=== PATIENT | male | born 1980 | race Caucasian/White ===

== ENCOUNTER 2018-02-06 03:11 | Inpatient (IN) ==
--- NOTE | 2018-02-06 03:46 | ED ---
HPI General Chief complaint: Recheck/Abnormal Lab/Rx Stated complaint: medical complaint Time Seen by Provider: 02/06/18 03:45 Source: patient Mode of arrival: ambulatory Limitations: no limitations History of Present Illness HPI narrative: 37-year-old male came to the emergency room with history of chills, shaking and bilateral lower extremity cramps. This temperature upon arrival was 103 oral. Patient says he has been riding his motorcycle for past 2 days and has not drank much fluids. It has been hot and he feels that he could be dehydrated. He started feeling like this 12 hours ago. No nausea vomiting. No history of cough. Patient says that he had a stroke couple years ago and it feels exactly the same way. He is concerned that he may be having another heatstroke. He has been slightly lightheaded but no syncopal episode. No history of chest pain. No known sick contacts. Patient says that otherwise he is healthy. He is not on any medications. Patient was slightly tachycardic upon arrival. He is awake and answering questions appropriately. Leg cramps are worse upon moving his legs. Onset (ago): hour(s) Location: lower extremity Radiation: non-radiation Severity scale (1-10): 6 Quality: aching Related Data Home Medications Medication Instructions Recorded Confirmed dexlansoprazole 60 mg PO PRN 02/06/18 02/06/18 Allergies Allergy/AdvReac Type Severity Reaction Status Date / Time No Known Allergies Allergy Verified 02/06/18 03:42 Review of Systems ROS: all other systems reviewed are negative Constitutional Reports chills Musculoskeletal Reports myalgias PMFSH Medical History Medical History Heartburn (Acute) Nephrolithiasis (Acute) Surgical History Surgical History No history of previous surgery (Acute) Family History Family History Grandparent Diabetes Heart disease Social History Social History Substance History: No History of Abuse Second Hand Smoke Exposure: Yes Smoking Status: Light tobacco smoker Tobacco Type: Cigarettes Packs Per Day: 1 Cigarettes Per Day: 20.0 How Often Do You Have a Drink Containing Alcohol: 2 to 4 times a month Recent Travel in [facility] within the Last 8 Weeks: No Recent Out of Country Travel within the Last 8 Weeks: No Immunization History Tetanus Immunization: Unsure Exam Narrative Exam Narrative: GENERAL: Awake, alert, moderate distress SKIN: Focused skin assessment warm/dry. HEAD: Atraumatic. Normocephalic. EYES: Pupils equal and round. No scleral icterus. No injection or drainage. ENT: No nasal bleeding or discharge. Dry mucous membrane. NECK: Trachea midline. No JVD. CARDIOVASCULAR: Regular rate and rhythm. No murmur appreciated. RESPIRATORY: No accessory muscle use. Clear to auscultation. Breath sounds equal bilaterally. GASTROINTESTINAL: Abdomen soft, non-tender, nondistended. Hepatic and splenic margins not palpable. MUSCULOSKELETAL: No obvious deformities. No clubbing. No cyanosis. No edema. NEUROLOGICAL: Awake and alert. No obvious cranial nerve deficits. Motor grossly within normal limits. Normal speech. PSYCHIATRIC: Appropriate mood and affect; insight and judgment normal. Course Initial Documented Vital Signs Temperature 103.0 F H 02/06/18 03:38 Pulse Rate 108 H 02/06/18 03:38 Respiratory Rate 18 02/06/18 03:38 Blood Pressure 139/84 02/06/18 03:38 Pulse Oximetry 96 02/06/18 03:38 Last Documented Vital Signs Temperature 98.6 F 02/08/18 04:00 Pulse Rate 61 02/08/18 05:00 Respiratory Rate 19 02/08/18 04:00 Blood Pressure 123/76 02/08/18 04:00 Pulse Oximetry 96 02/08/18 04:00 Medical Decision Making MDM Narrative Medical decision making narrative: 4:57 AM CBC shows some leukocytosis. Lactic acid is within normal limits. Patient is getting IV fluid bolus at's per sepsis protocol. He was given Tylenol p.o. Awaiting for chemistry and CPK. 5:17 AM UA is back which is grossly positive for UTI. Repeat temperature is 100.8. I just went and spoke with the patient and he says he feels a little better. CPKs within normal limit. I would like to admit the patient for IV antibiotics. Patient was given 1 dose of Rocephin. This was discussed with the patient along with the plan and he understands. He is agreeable to the plan. Awaiting for the hospitalist callback. Medical Screen Exam Complete: Yes Emergency Medical Condition: Yes Lab Data Result diagrams: 02/07/18 10:48 02/07/18 10:48 Lab Results 02/06/18 02/06/18 02/06/18 Range/Units 04:00 04:00 04:00 WBC 14.6 H (4.0-11.0) th/mm3 RBC 4.57 (4.50-5.90) mil/mm3 Hgb 14.0 (13.0-17.0) gm/dL Hct 40.0 (39.0-51.0) % MCV 87.6 (80.0-100.0) fL MCH 30.6 (27.0-34.0) pg MCHC 34.9 (32.0-36.0) % RDW 13.5 (11.6-17.2) % Plt Count 255 (150-450) th/mm3 MPV 7.9 (7.0-11.0) fL Neut % (Auto) 77.5 H (16.0-70.0) % Lymph % (Auto) 10.8 (9.0-44.0) % [place] % (Auto) 10.9 H (0.0-8.0) % Eos % (Auto) 0.4 (0.0-4.0) % Baso % (Auto) 0.4 (0.0-2.0) % Neut # (Auto) 11.3 H (1.8-7.7) th/mm3 Lymph # (Auto) 1.6 (1.0-4.8) th/mm3 [place] # (Auto) 1.6 H (0.0-0.9) th/mm3 Eos # (Auto) 0.1 (0.0-0.4) th/mm3 Baso # (Auto) 0.1 (0.0-0.2) th/mm3 WBC Differential . Differential Comment Auto diff final PT 11.4 (9.8-11.6) sec INR 1.1 Ratio APTT 31.5 H (24.3-30.1) sec Sodium (136-145) meq/L Potassium (3.5-5.1) meq/L Chloride (98-107) meq/L Carbon Dioxide (21.0-32.0) meq/L Anion Gap (5-15) meq/L BUN (7-18) mg/dL Creatinine (0.60-1.30) mg/dL Estimated GFR (>89) mL/min Random Glucose (74-106) mg/dL Lactic Acid (0.4-2.0) mmol/L Calcium (8.5-10.1) mg/dL Magnesium (1.5-2.5) mg/dL Total Bilirubin (0.2-1.0) mg/dL AST (15-37) U/L ALT (12-78) U/L Alkaline Phosphatase (45-117) U/L Total Creatine Kinase Cancelled Total Protein (6.4-8.2) g/dL Albumin (3.4-5.0) g/dL Urine Color (Yellw/Straw) Urine Clarity (Clear) Urine pH (5.0-8.5) Ur Specific [place] (1.002-1.035) Urine Protein (Neg-Trace) mg/dL Urine Glucose (UA) (Negative) mg/dL Urine Ketones (Negative) mg/dL Urine Occult Blood (Negative) Urine Nitrate (Negative) Urine Bilirubin (Negative) Urine Urobilinogen (Less than 2) mg/dL Ur Leukocyte Esterase (Negative) Urine RBC (0-3) /hpf Urine WBC (0-5) /hpf Urine Bacteria (None) /hpf Urine Mucus (Occasional) /lpf Micro UA Comment Ur Microscopic Review Urine Culture Comments 02/06/18 02/06/18 02/06/18 Range/Units 04:00 04:00 04:55 WBC (4.0-11.0) th/mm3 RBC (4.50-5.90) mil/mm3 Hgb (13.0-17.0) gm/dL Hct (39.0-51.0) % MCV (80.0-100.0) fL MCH (27.0-34.0) pg MCHC (32.0-36.0) % RDW (11.6-17.2) % Plt Count (150-450) th/mm3 MPV (7.0-11.0) fL Neut % (Auto) (16.0-70.0) % Lymph % (Auto) (9.0-44.0) % [place] % (Auto) (0.0-8.0) % Eos % (Auto) (0.0-4.0) % Baso % (Auto) (0.0-2.0) % Neut # (Auto) (1.8-7.7) th/mm3 Lymph # (Auto) (1.0-4.8) th/mm3 [place] # (Auto) (0.0-0.9) th/mm3 Eos # (Auto) (0.0-0.4) th/mm3 Baso # (Auto) (0.0-0.2) th/mm3 WBC Differential Differential Comment PT (9.8-11.6) sec INR Ratio APTT (24.3-30.1) sec Sodium 140 (136-145) meq/L Potassium 3.5 (3.5-5.1) meq/L Chloride 108 H (98-107) meq/L Carbon Dioxide 26.3 (21.0-32.0) meq/L Anion Gap 6 (5-15) meq/L BUN 10 (7-18) mg/dL Creatinine 1.10 (0.60-1.30) mg/dL Estimated GFR 76 L (>89) mL/min Random Glucose 98 (74-106) mg/dL Lactic Acid 0.9 (0.4-2.0) mmol/L Calcium 8.9 (8.5-10.1) mg/dL Magnesium 1.8 (1.5-2.5) mg/dL Total Bilirubin 0.6 (0.2-1.0) mg/dL AST 17 (15-37) U/L ALT 27 (12-78) U/L Alkaline Phosphatase 102 (45-117) U/L Total Creatine Kinase 91 Total Protein 7.6 (6.4-8.2) g/dL Albumin 3.7 (3.4-5.0) g/dL Urine Color Yellow (Yellw/Straw) Urine Clarity Hazy H (Clear) Urine pH 5.0 (5.0-8.5) Ur Specific [place] 1.010 (1.002-1.035) Urine Protein Negative (Neg-Trace) mg/dL Urine Glucose (UA) Negative (Negative) mg/dL Urine Ketones Negative (Negative) mg/dL Urine Occult Blood Moderate H (Negative) Urine Nitrate Positive H (Negative) Urine Bilirubin Negative (Negative) Urine Urobilinogen Less than 2 (Less than 2) mg/dL Ur Leukocyte Esterase Large H (Negative) Urine RBC 33 H (0-3) /hpf Urine WBC 176 H (0-5) /hpf Urine Bacteria Many H (None) /hpf Urine Mucus Few H (Occasional) /lpf Micro UA Comment Culture indicated Ur Microscopic Review Not Reportable Urine Culture Comments Culture indicated 02/07/18 02/07/18 Range/Units 10:48 10:48 WBC 12.2 H (4.0-11.0) th/mm3 RBC 3.68 L (4.50-5.90) mil/mm3 Hgb 11.4 L D (13.0-17.0) gm/dL Hct 34.0 L (39.0-51.0) % MCV 92.4 D (80.0-100.0) fL MCH 31.1 (27.0-34.0) pg MCHC 33.6 (32.0-36.0) % RDW 13.3 (11.6-17.2) % Plt Count 205 (150-450) th/mm3 MPV 7.8 (7.0-11.0) fL Neut % (Auto) 73.2 H (16.0-70.0) % Lymph % (Auto) 16.2 (9.0-44.0) % [place] % (Auto) 9.8 H (0.0-8.0) % Eos % (Auto) 0.5 (0.0-4.0) % Baso % (Auto) 0.3 (0.0-2.0) % Neut # (Auto) 8.9 H (1.8-7.7) th/mm3 Lymph # (Auto) 2.0 (1.0-4.8) th/mm3 [place] # (Auto) 1.2 H (0.0-0.9) th/mm3 Eos # (Auto) 0.1 (0.0-0.4) th/mm3 Baso # (Auto) 0.0 (0.0-0.2) th/mm3 WBC Differential . Differential Comment Auto diff final PT (9.8-11.6) sec INR Ratio APTT (24.3-30.1) sec Sodium 140 (136-145) meq/L Potassium 3.3 L (3.5-5.1) meq/L Chloride 109 H (98-107) meq/L Carbon Dioxide 22.3 (21.0-32.0) meq/L Anion Gap 9 (5-15) meq/L BUN 9 (7-18) mg/dL Creatinine 0.93 (0.60-1.30) mg/dL Estimated GFR Greater than 89 (>89) mL/min Random Glucose 108 H (74-106) mg/dL Lactic Acid (0.4-2.0) mmol/L Calcium 8.8 (8.5-10.1) mg/dL Magnesium (1.5-2.5) mg/dL Total Bilirubin 0.5 (0.2-1.0) mg/dL AST 19 (15-37) U/L ALT 30 (12-78) U/L Alkaline Phosphatase 89 (45-117) U/L Total Creatine Kinase Total Protein 7.0 D (6.4-8.2) g/dL Albumin 2.9 L D (3.4-5.0) g/dL Urine Color (Yellw/Straw) Urine Clarity (Clear) Urine pH (5.0-8.5) Ur Specific [place] (1.002-1.035) Urine Protein (Neg-Trace) mg/dL Urine Glucose (UA) (Negative) mg/dL Urine Ketones (Negative) mg/dL Urine Occult Blood (Negative) Urine Nitrate (Negative) Urine Bilirubin (Negative) Urine Urobilinogen (Less than 2) mg/dL Ur Leukocyte Esterase (Negative) Urine RBC (0-3) /hpf Urine WBC (0-5) /hpf Urine Bacteria (None) /hpf Urine Mucus (Occasional) /lpf Micro UA Comment Ur Microscopic Review Urine Culture Comments Imaging Data Radiologist's impression: Abdomen/Bladder Ultrasound 02/06/18 00:00 CONCLUSION: 1. 8 x 4 x 8 mm echogenic foci in the right kidney most consistent with a small stone. 2. Mild prominence of the right central collecting system which could indicate mild hydronephrosis. Chest X-Ray 02/06/18 03:51 CONCLUSION: Minimal bibasilar densities could be atelectasis or infiltrates. Discharge Plan Discharge Disposition Patient Disposition: 30 Still Patient Physicians Team ED Provider: Rodrigo Rodriguez Primary Care Provider: Primary Care Lory Smith Attending Provider: Jhoana Espino Status ED Status: Left Department Discharge Information Discharge Date/Time: 02/06/18 06:26
[2018-02-06] MEDS ORDERED: Acetaminophen 325 MG Tablet PO ONE (03:50)
[2018-02-06 04:19] LABS: Baso # (Auto) 0.1 th/mm3 (0.0-0.2); Baso % (Auto) 0.4 % (0.0-2.0); Eos # (Auto) 0.1 th/mm3 (0.0-0.4); Eos % (Auto) 0.4 % (0.0-4.0); Lymph # (Auto) 1.6 th/mm3 (1.0-4.8); Lymph % (Auto) 10.8 % (9.0-44.0); Mean Corpuscular HGB Conc 34.9 % (32.0-36.0); Mean Corpuscular Hemoglobin 30.6 pg (27.0-34.0); Mean Corpuscular Volume 87.6 fL (80.0-100.0); Mean Platelet Volume 7.9 fL (7.0-11.0); Mono # (Auto) 1.6 th/mm3 (0.0-0.9); Mono % (Auto) 10.9 % (0.0-8.0); Neut # (Auto) 11.3 th/mm3 (1.8-7.7); Neut % (Auto) 77.5 % (16.0-70.0); Platelet Count 255 th/mm3 (150-450); Red Blood Count 4.57 mil/mm3 (4.50-5.90); Red Cell Distribution Width 13.5 % (11.6-17.2); White Blood Count 14.6 th/mm3 (4.0-11.0)
--- NOTE | 2018-02-06 04:19 | XR ---
EXAM DATE: 02/06/2018 3:51 AM EDT AGE/SEX: 37 years / Male INDICATIONS: Fever. CLINICAL DATA: This is the patient's initial encounter. Patient reports that signs and symptoms have been present for 1 day and indicates a pain score of 0/10. MEDICAL/SURGICAL HISTORY: None. None. COMPARISON: No prior exams available for comparison. FINDINGS: A single AP view of the chest demonstrates minimal bibasilar densities. Heart normal in size The card iomediastinal contours are unremarkable. Osseous structures are intact. CONCLUSION: Minimal bibasilar densities could be atelectasis or infiltrates. Electronically signed by: Everardo Romero MD 02/06/2018 4:17 AM EDT
[2018-02-06 04:31] LABS: Activated Partial Thrombo Time 31.5 sec (24.3-30.1); INR 1.1 Ratio; Prothrombin Time 11.4 sec (9.8-11.6)
[2018-02-06 04:56] LABS: Alanine Aminotransferase 27 U/L (12-78); Albumin 3.7 g/dL (3.4-5.0); Anion Gap 6 meq/L (5-15); Aspartate Aminotransferase 17 U/L (15-37); Blood Urea Nitrogen 10 mg/dL (7-18); Calcium 8.9 mg/dL (8.5-10.1); Carbon Dioxide 26.3 meq/L (21.0-32.0); Chloride 108 meq/L (98-107); Glomerular Filtration Rate 76 mL/min (>89); Glucose,Random 98 mg/dL (74-106); Magnesium 1.8 mg/dL (1.5-2.5); Potassium 3.5 meq/L (3.5-5.1); Sodium 140 meq/L (136-145)
[2018-02-06 04:59] LABS: Alkaline Phosphatase 102 U/L (45-117); Total Protein 7.6 g/dL (6.4-8.2)
[2018-02-06 05:07] LABS: Bacteria,Urine Many /hpf; Bilirubin,Urine Negative (Negative); Clarity,Urine Hazy (Clear); Color,Urine Yellow (Yellw/Straw); Glucose,Urine (UA) Negative (Negative); Leukocyte Esterase,Urine Large (Negative); Mucus,Urine Few /lpf (Occasional); Nitrite,Urine Positive (Negative)
[2018-02-06 05:07] LABS: Creatine Kinase 91 U/L (39-308)
[2018-02-06] MEDS ORDERED: Bisacodyl 10 MG Supp RECTAL PRN (05:27)
[2018-02-06] MEDS: Sod Chloride 0.9% Inj 1,000 ML IV.CONT SCH ×2 (06:47→17:16)
[2018-02-06] MEDS: Senna/Docusate Sodium 8.6/50 MG Tablet PO SCH ×2 (08:57→22:19)
[2018-02-06] MEDS: Acetaminophen 325 MG Tablet PO PRN ×2 (09:02→23:03)
--- NOTE | 2018-02-06 10:01 | P.HP ---
History of Present Illness Primary Care Physician: No Primary Care Physician Chief Complaint: Fever/chills History of Present Illness: 37-year-old male with past medical history of nephrolithiasis, presents with a 1 day history of subjective fevers, chills, and dehydration. The patient is visiting for [facility], and has been outside riding his motorcycle in the heat for the past 2 days. He started to feel very warm with occasional chills and sweats, did not take his temperature at home. He also reports diffuse leg cramping. He states it felt similar to when he had heatstroke in the past. He admits to not drinking much fluids over the past few days. He also began to feel very lightheaded, but denies any loss of consciousness. Upon arrival to the hospital, he was found to have fever of 103 and urinalysis with UTI. The patient does report noticing some recent dysuria. Denies any abdominal/ suprapubic/flank pain. Denies any nausea/vomiting or diarrhea. He reports history of nephrolithiasis, but denies any history of cystoscopies/stents/ lithotripsies. The patient has no other medical complaints at this time. Review of Systems All other systems reviewed negative except as stated in HPI PMFSH - History History Provided By: Patient - Medical History Medical History: Medical History (Last Updated 02/06/18 @ 16:10 by Kendra Iqbal) Heartburn Nephrolithiasis - Surgical History Surgical History: Surgical History (Last Reviewed 02/06/18 @ 16:10 by Kendra Iqbal) No history of previous surgery - Family History Family History: Family History (Last Updated 02/06/18 @ 16:11 by Kendra Iqbal) Grandparent Diabetes Heart disease - Tobacco History Second Hand Smoke Exposure: Yes Tobacco Use In Past 30 Days: Yes Smoking Status: Light tobacco smoker Tobacco Type: Cigarettes Packs Per Day: 1 - Alcohol History How Often Do You Have a Drink Containing Alcohol: 2 to 4 times a month - Substance Use History Substance History: No History of Abuse - Travel History Recent Travel in the [facility] Within the Last 8 Weeks: No Recent Travel Out of the Country Within the Last 8 Weeks: No - Immunization History Tetanus Immunization: Unsure Medications and Allergies Active Medications: Active Medications Acetaminophen (Tylenol) 650 mg PO Q4H PRN PRN Reason: Temp > 100.4 Last Admin: 02/06/18 09:02 Dose: 650 mg Al Hydroxide/Mg Hydroxide (Milk Of Magnesia Liq) 30 ml PO Q12H PRN PRN Reason: Mild Constipation Bisacodyl (Dulcolax Supp) 10 mg RECTAL DAILY PRN PRN Reason: SEVERE CONSITIPATION Ceftriaxone Sodium 1,000 mg/ (Sodium Chloride) 100 mls @ 200 mls/hr IV.SIG Q24H LENA Sodium Chloride (Ns Inj) 1,000 mls @ 100 mls/hr IV.CONT .Q10H [facility] Last Admin: 02/06/18 06:47 Dose: 100 mls/hr Lactulose (Lactulose Liq) 30 ml PO DAILY PRN PRN Reason: SEVERE CONSITIPATION Ondansetron HCl (Zofran Inj) 4 mg IV.PUSH Q6H PRN PRN Reason: NAUSEA OR VOMITING Senna/Docusate Sodium (Nita-Colace) 1 tab PO BID [facility] Last Admin: 02/06/18 08:57 Dose: Not Given Sennosides (Senokot) 17.2 mg PO Q12H PRN PRN Reason: Moderate Constipation Allergies Allergy/AdvReac Type Severity Reaction Status Date / Time No Known Allergies Allergy Verified 02/06/18 03:42 Home Medications Medication Instructions Recorded Confirmed Type dexlansoprazole 60 mg PO PRN 02/06/18 02/06/18 History Exam Vital signs: Vital Signs 02/06/18 03:38 02/06/18 03:51 02/06/18 05:05 Temperature 103.0 F H 100.8 F H Pulse Rate 108 H Respiratory Rate 18 Blood Pressure 139/84 Pulse Oximetry 96 96 02/06/18 05:36 02/06/18 05:47 02/06/18 08:00 Temperature 99.6 F 99.5 F Pulse Rate 90 91 H Respiratory Rate 18 16 Blood Pressure 119/74 125/77 Pulse Oximetry 95 96 Intake & Output 02/05/18 02/06/18 02/06/18 18:59 06:59 18:59 Intake Total 100 / 100 Balance 100 / 100 Weight 124.738 kg Intake: IV 100 / 100 Rocephin Inj 1,000 MG In NS Inj 100 / 100 100 ML @ 200 mls/hr IV.SIG ONCE ONE Rx#:[id number] Other: Weight On Admission 124.738 kg Narrative: GENERAL: Well-nourished, well-developed pleasant male patient in NAD. SKIN: Warm and clammy. No rash. HEENT: Normocephalic. Atraumatic. Pupils equal and round. Mucous membranes pink and moist. NECK: Supple. Trachea midline. CARDIOVASCULAR: Regular rate and rhythm. No murmur appreciated. RESPIRATORY: No accessory muscle use. Clear to auscultation. Breath sounds equal bilaterally. GASTROINTESTINAL: Abdomen soft, non-tender, nondistended. Normoactive bowel sounds x4. MUSCULOSKELETAL: No obvious deformities. Extremities without clubbing, cyanosis , or edema. No CVA tenderness bilaterally. NEUROLOGICAL: Awake and alert. No obvious cranial nerve deficits. Motor grossly within normal limits. Moving all extremities spontaneously. Normal speech. PSYCHIATRIC: Appropriate mood and affect; insight and judgment normal. Results - Labs CBC & Chem 7: 02/06/18 04:00 02/06/18 04:00 Labs: Laboratory Results - last 24 hr 02/06/18 02/06/18 02/06/18 04:00 04:00 04:00 WBC 14.6 H RBC 4.57 Hgb 14.0 Hct 40.0 MCV 87.6 MCH 30.6 MCHC 34.9 RDW 13.5 Plt Count 255 MPV 7.9 Neut % (Auto) 77.5 H Lymph % (Auto) 10.8 [place] % (Auto) 10.9 H Eos % (Auto) 0.4 Baso % (Auto) 0.4 Neut # (Auto) 11.3 H Lymph # (Auto) 1.6 [place] # (Auto) 1.6 H Eos # (Auto) 0.1 Baso # (Auto) 0.1 WBC Differential . Differential Comment Auto diff final PT 11.4 INR 1.1 APTT 31.5 H Sodium Potassium Chloride Carbon Dioxide Anion Gap BUN Creatinine Estimated GFR Random Glucose Lactic Acid Calcium Magnesium Total Bilirubin AST ALT Alkaline Phosphatase Total Creatine Kinase Cancelled Total Protein Albumin Urine Color Urine Clarity Urine pH Ur Specific [place] Urine Protein Urine Glucose (UA) Urine Ketones Urine Occult Blood Urine Nitrate Urine Bilirubin Urine Urobilinogen Ur Leukocyte Esterase Urine RBC Urine WBC Urine Bacteria Urine Mucus Micro UA Comment Ur Microscopic Review Urine Culture Comments 02/06/18 02/06/18 02/06/18 04:00 04:00 04:55 WBC RBC Hgb Hct MCV MCH MCHC RDW Plt Count MPV Neut % (Auto) Lymph % (Auto) [place] % (Auto) Eos % (Auto) Baso % (Auto) Neut # (Auto) Lymph # (Auto) [place] # (Auto) Eos # (Auto) Baso # (Auto) WBC Differential Differential Comment PT INR APTT Sodium 140 Potassium 3.5 Chloride 108 H Carbon Dioxide 26.3 Anion Gap 6 BUN 10 Creatinine 1.10 Estimated GFR 76 L Random Glucose 98 Lactic Acid 0.9 Calcium 8.9 Magnesium 1.8 Total Bilirubin 0.6 AST 17 ALT 27 Alkaline Phosphatase 102 Total Creatine Kinase 91 Total Protein 7.6 Albumin 3.7 Urine Color Yellow Urine Clarity Hazy H Urine pH 5.0 Ur Specific [place] 1.010 Urine Protein Negative Urine Glucose (UA) Negative Urine Ketones Negative Urine Occult Blood Moderate H Urine Nitrate Positive H Urine Bilirubin Negative Urine Urobilinogen Less than 2 Ur Leukocyte Esterase Large H Urine RBC 33 H Urine WBC 176 H Urine Bacteria Many H Urine Mucus Few H Micro UA Comment Culture indicated Ur Microscopic Review Not Reportable Urine Culture Comments Culture indicated - Imaging Impressions Chest X-Ray 02/06/18 03:51 CONCLUSION: Minimal bibasilar densities could be atelectasis or infiltrates. Caprini VTE Risk Assessment Caprini VTE Risk Assessment: No/Low Risk (score <= 1) Caprini Risk Assessment Model: Point Value = 1 Point Value = 2 Point Value = 3 Point Value = 5 Age 41-60 Minor surgery BMI > 25 kg/m2 Swollen legs Varicose veins or History of unexplained or recurrent spontaneous Oral contraceptives or hormone replacement Sepsis (< 1 month) Serious lung disease, including pneumonia (< 1 month) Abnormal pulmonary function Acute myocardial infarction Congestive heart failure (< 1 month) History of inflammatory bowel disease Medical patient at bed rest Age 61-74 Arthroscopic surgery Major open surgery (> 45 min) Laparoscopic surgery (> 45 min) Malignancy Confined to bed (> 72 hours) Immobilizing plaster cast Central venous access Age >= 75 History of VTE Family history of VTE Factor V Leiden Prothrombin [id number] Lupus anticoagulant Anticardiolipin antibodies Elevated serum homocysteine Heparin-induced thrombocytopenia Other congenital or acquired thrombophilia Stroke (< 1 month) Elective arthroplasty Hip, pelvis, or leg fracture Acute spinal cord injury (< 1 month) Prophylaxis Regimen: Total Risk Factor Score Risk Level Prophylaxis Regimen 0-1 Low Early ambulation 2 Moderate Order ONE of the following: *Sequential Compression Device (SCD) *Heparin 5000 units SQ BID 3-4 Higher Order ONE of the following medications: *Heparin 5000 units SQ TID *Enoxaparin/Lovenox 40 mg SQ daily (WT < 150 kg, CrCl > 30 mL/min) *Enoxaparin/Lovenox 30 mg SQ daily (WT < 150 kg, CrCl > 10-29 mL/min) *Enoxaparin/Lovenox 30 mg SQ BID (WT < 150 kg, CrCl > 30 mL/min) AND/OR *Sequential Compression Device (SCD) 5 or more Highest Order ONE of the following medications: *Heparin 5000 units SQ TID (Preferred with Epidurals) *Enoxaparin/Lovenox 40 mg SQ daily (WT < 150 kg, CrCl > 30 mL/min) *Enoxaparin/Lovenox 30 mg SQ daily (WT < 150 kg, CrCl > 10-29 mL/min) *Enoxaparin/Lovenox 30 mg SQ BID (WT < 150 kg, CrCl > 30 mL/min) AND *Sequential Compression Device (SCD) Assessment and Plan - Plan 37-year-old male with past medical history of nephrolithiasis, presents with a 1 day history of subjective fevers, chills, and dehydration. Upon arrival to the hospital, he was found to have fever of 103 and urinalysis with UTI. Sepsis with UTI: Patient meets sepsis criteria with leukocytosis WBC 14.6 K, tachycardia HR 108, T-max 103, with suspected sourceUTI. -Urinalysis positive for nitrates, large leuks, many WBCs/bacteria -CXR and influenza negative -Monitor blood cultures -Continue on IV Rocephin -Give IV fluid hydration -Tylenol as needed -Monitor urine culture and adjust antibiotics as appropriate -Repeat labs in am Nephrolithiasis: Patient with history of kidney stones, and passed 2 small stones after admission -RN to collect stone if anymore passes -Renal ultrasound reviewed, shows 8 x 4 x 8 mm right small renal stone; Mild prominence of the right central collecting system which could indicate mild hydronephrosis -IVF hydration DVT prophylaxis: Patient is ambulatory Discharge Planning: Discharge pending further clinical improvement and urine/blood cultures.
--- NOTE | 2018-02-06 10:53 | US ---
EXAM DATE: 02/06/2018 12:00 AM EDT AGE/SEX: 37 years / Male INDICATIONS: Flank Pain. CLINICAL DATA: This is the patient's initial encounter. Patient reports that signs and symptoms have been present for 1 day and indicates a pain score of 4/10. MEDICAL/SURGICAL HISTORY: . Heartburn. None. COMPARISON: . MEASUREMENTS: Right Kidney:__11.6 x 7.0 x 6.3 cm Left Kidney:__11.7 x 5.0 x 7.0 cm FINDINGS: Right Kidney: Normal echotexture and cortical thickness. No mass. There is mild prominence of the rig ht intrarenal collecting system.. There is an 8 x 4 x 8 mm echogenic foci in the upper pole. Left Kidney: Normal echotexture and cortical thickness. No mass or hydronephrosis. Bladder: Within normal limits given the degree of distension. Other: None. CONCLUSION: 1. 8 x 4 x 8 mm echogenic foci in the right kidney most consistent with a small stone. 2. Mild prominence of the right central collecting system which could indicate mild hydronephrosis. Electronically signed by: Dionisio Charles MD 02/06/2018 10:51 AM EDT
[2018-02-07] MEDS: Sod Chloride 0.9% Inj 1,000 ML IV.CONT SCH ×3 (03:36→20:37)
[2018-02-07] MEDS: Acetaminophen 325 MG Tablet PO PRN (04:41)
[2018-02-07] MEDS ORDERED: Loperamide 2 MG Capsule PO PRN (08:38)
[2018-02-07] MEDS: Senna/Docusate Sodium 8.6/50 MG Tablet PO SCH ×2 (10:11→21:00)
[2018-02-07] MEDS: Lactobacillus Acidophilus/L. Spores Tablet PO SCH ×3 (10:11→19:03)
[2018-02-07] MEDS: Piperacil/Tazo 4.5 GM Premix 4.5 GM/100 ML BAG IV.SIG SCH ×3 (10:11→20:19)
--- NOTE | 2018-02-07 10:25 | P.PN ---
Subjective Interval history: Follow-up for sepsis with UTI. Patient reports continued fevers overnight, T- max 102.1 at 4 AM this morning. He reports some loose stools today. Continues to deny any abdominal pain or nausea/vomiting. Denies any dysuria today. States overall he just feels weak. He is tolerating oral intake. He denies any other medical complaints including no congestion, cough, odynophagia, dysphagia, or neck stiffness/pain. Physical Exam Vital signs: Vital Signs 02/06/18 12:00 02/06/18 15:30 02/06/18 19:21 Temperature 98.7 F 98.9 F 99.0 F Pulse Rate 92 H 104 H 94 H Respiratory Rate 16 18 18 Blood Pressure 129/76 139/74 140/79 Pulse Oximetry 95 93 L 96 02/07/18 00:00 02/07/18 04:00 02/07/18 08:00 Temperature 98.2 F 102.1 F H 98.6 F Pulse Rate 80 102 H 85 Respiratory Rate 19 19 12 Blood Pressure 122/72 133/75 118/74 Pulse Oximetry 96 95 94 L Intake & Output 02/06/18 02/07/18 02/07/18 18:59 06:59 18:59 Intake Total 1000 / 1000 100 / 100 Balance 1000 / 1000 100 / 100 Weight 116.7 kg Intake: IV 1000 / 1000 100 / 100 NS Inj 1,000 ML @ 100 mls/hr IV 1000 / 1000 .CONT .Q10H LENA Rx#:[id number] Rocephin Inj 1,000 MG In NS Inj 100 / 100 100 ML @ 200 mls/hr IV.SIG Q24H LENA Rx#:[id number] Other: # Voids 1 Date of Last Bowel Movement 02/07/18 Narrative: GENERAL: Well-nourished, well-developed pleasant male patient in [facility]. SKIN: Warm and clammy. No rash. HEENT: Normocephalic. Atraumatic. Pupils equal and round. Mucous membranes pink and moist. NECK: Supple. Trachea midline. Able to touch chin to chest without difficulty/ pain. CARDIOVASCULAR: Regular rate and rhythm. No murmur appreciated. RESPIRATORY: No accessory muscle use. Clear to auscultation. Breath sounds equal bilaterally. GASTROINTESTINAL: Abdomen soft, non-tender, nondistended. Normoactive bowel sounds x4. MUSCULOSKELETAL: No obvious deformities. Extremities without clubbing, cyanosis , or edema. No CVA tenderness bilaterally. NEUROLOGICAL: Awake and alert. No obvious cranial nerve deficits. Motor grossly within normal limits. Moving all extremities spontaneously. Normal speech. PSYCHIATRIC: Appropriate mood and affect; insight and judgment normal. Results - Labs CBC & Chem 7: 02/07/18 10:48 02/06/18 04:00 - Imaging Impressions Abdomen/Bladder Ultrasound 02/06/18 00:00 CONCLUSION: 1. 8 x 4 x 8 mm echogenic foci in the right kidney most consistent with a small stone. 2. Mild prominence of the right central collecting system which could indicate mild hydronephrosis. Assessment and Plan - Plan 37-year-old male with past medical history of nephrolithiasis, presents with a 1 day history of subjective fevers, chills, and dehydration. Upon arrival to the hospital, he was found to have fever of 103 and urinalysis with UTI. Sepsis with UTI: Patient meets sepsis criteria with leukocytosis WBC 14.6 K, tachycardia HR 108, T-max 103, with suspected sourceUTI. -Urinalysis positive for nitrates, large leuks, many WBCs/bacteria -CXR and influenza negative -Monitor blood cultures -Continue IV fluid hydration -Tylenol as needed -Monitor urine culture and adjust antibiotics as appropriate -Repeat labs show mild improvement with WBC 12 K today -Given IV Rocephin, however patient still febrile, switched to IV Zosyn today 02/07 Nephrolithiasis: Patient with history of kidney stones, and passed 2 small stones after admission -RN to collect stone if anymore passes -Renal ultrasound reviewed, shows 8 x 4 x 8 mm right small renal stone; Mild prominence of the right central collecting system which could indicate mild hydronephrosis -IVF hydration Loose stool: Suspect secondary to antibiotics -Started on Lactinex -Check stool studies if any further loose stools/diarrhea DVT prophylaxis: Patient is ambulatory Discharge Planning: Discharge pending further clinical improvement, afebrile x24 hours, and urine/ blood cultures.
[2018-02-07 11:18] LABS: Baso % (Auto) 0.3 % (0.0-2.0); Eos # (Auto) 0.1 th/mm3 (0.0-0.4); Eos % (Auto) 0.5 % (0.0-4.0); Hemoglobin 11.4 gm/dL (13.0-17.0); Lymph % (Auto) 16.2 % (9.0-44.0); Mean Corpuscular HGB Conc 33.6 % (32.0-36.0); Mean Corpuscular Hemoglobin 31.1 pg (27.0-34.0); Mean Corpuscular Volume 92.4 fL (80.0-100.0); Mean Platelet Volume 7.8 fL (7.0-11.0); Mono # (Auto) 1.2 th/mm3 (0.0-0.9); Mono % (Auto) 9.8 % (0.0-8.0); Neut # (Auto) 8.9 th/mm3 (1.8-7.7); Neut % (Auto) 73.2 % (16.0-70.0); Platelet Count 205 th/mm3 (150-450); Red Blood Count 3.68 mil/mm3 (4.50-5.90); Red Cell Distribution Width 13.3 % (11.6-17.2); White Blood Count 12.2 th/mm3 (4.0-11.0)
[2018-02-07 11:46] LABS: Alanine Aminotransferase 30 U/L (12-78); Albumin 2.9 g/dL (3.4-5.0); Alkaline Phosphatase 89 U/L (45-117); Anion Gap 9 meq/L (5-15); Aspartate Aminotransferase 19 U/L (15-37); Blood Urea Nitrogen 9 mg/dL (7-18); Calcium 8.8 mg/dL (8.5-10.1); Carbon Dioxide 22.3 meq/L (21.0-32.0); Chloride 109 meq/L (98-107); Glomerular Filtration Rate Greater Than 89 mL/min (>89); Glucose,Random 108 mg/dL (74-106); Potassium 3.3 meq/L (3.5-5.1); Sodium 140 meq/L (136-145)
[2018-02-07] MEDS ORDERED: Ibuprofen 600 MG Tablet PO ONE (20:15)
[2018-02-08] MEDS: Piperacil/Tazo 4.5 GM Premix 4.5 GM/100 ML BAG IV.SIG SCH ×2 (02:21→08:06)
[2018-02-08 04:06] VITALS: O2SAT 96
[2018-02-08] MEDS: Sod Chloride 0.9% Inj 1,000 ML IV.CONT SCH ×2 (06:16→08:06)
[2018-02-08] MEDS: Lactobacillus Acidophilus/L. Spores Tablet PO SCH (08:06)
[2018-02-08] MEDS: Senna/Docusate Sodium 8.6/50 MG Tablet PO SCH (08:06)
[2018-02-08 09:04] VITALS: BP 132/83; PULSE 75; RESP 16; TEMP 98.1
[2018-02-08 11:01] LABS: Baso # (Auto) 0.1 th/mm3 (0.0-0.2); Eos # (Auto) 0.1 th/mm3 (0.0-0.4); Eos % (Auto) 1.3 % (0.0-4.0); Hematocrit 33.3 % (39.0-51.0); Hemoglobin 11.7 gm/dL (13.0-17.0); Lymph # (Auto) 1.7 th/mm3 (1.0-4.8); Lymph % (Auto) 20.4 % (9.0-44.0); Mean Corpuscular HGB Conc 35.2 % (32.0-36.0); Mean Corpuscular Hemoglobin 31.4 pg (27.0-34.0); Mean Corpuscular Volume 89.2 fL (80.0-100.0); Mean Platelet Volume 7.9 fL (7.0-11.0); Mono # (Auto) 0.7 th/mm3 (0.0-0.9); Mono % (Auto) 8.2 % (0.0-8.0); Neut # (Auto) 5.9 th/mm3 (1.8-7.7); Neut % (Auto) 69.1 % (16.0-70.0); Platelet Count 222 th/mm3 (150-450); Red Blood Count 3.74 mil/mm3 (4.50-5.90); Red Cell Distribution Width 13.2 % (11.6-17.2); White Blood Count 8.5 th/mm3 (4.0-11.0)
[2018-02-08 11:17] LABS: Calcium 8.9 mg/dL (8.5-10.1); Carbon Dioxide 24.4 meq/L (21.0-32.0); Potassium 3.9 meq/L (3.5-5.1)
--- NOTE | 2018-02-08 11:18 | P.PN ---
Subjective Interval history: Follow up on patient with urosepsis. Patient seen and examined. Patient denies any complaints of fever or chills. He states he still has some mild discomfort with urination but denies any rabia dysuria. He denies any hematuria. He continues to have dark colored urine. He denies any chest pain or shortness of breath. He denies any nausea, vomiting or abdominal pain. Physical Exam Vital signs: Vital Signs 02/07/18 11:37 02/07/18 15:40 02/07/18 16:39 Temperature 98.8 F 101.2 F H 100.9 F H Pulse Rate 95 H 99 H Respiratory Rate 16 16 Blood Pressure 124/69 128/73 Pulse Oximetry 96 94 L 02/07/18 19:04 02/07/18 20:00 02/07/18 23:59 Temperature 98.4 F 99.1 F 98.2 F Pulse Rate 84 60 Respiratory Rate 19 20 Blood Pressure 135/80 116/79 Pulse Oximetry 95 97 02/08/18 04:00 02/08/18 05:00 02/08/18 08:00 Temperature 98.6 F 98.1 F Pulse Rate 76 61 75 Respiratory Rate 19 16 Blood Pressure 123/76 132/83 Pulse Oximetry 96 96 Intake & Output 02/07/18 02/08/18 02/08/18 18:59 06:59 18:59 Intake Total 200 / 200 1200 / 1200 1100 / 1100 Balance 200 / 200 1200 / 1200 1100 / 1100 Weight 116.573 kg Intake: IV 200 / 200 1200 / 1200 1100 / 1100 NS Inj 1,000 ML @ 100 mls/hr IV 1000 / 1000 1000 / 1000 .CONT .Q10H LENA Rx#:[id number] Zosyn 4.5 GM Premix 4.5 gm In 200 / 200 200 / 200 100 / 100 100 ml @ 200 mls/hr IV.SIG Q6H LENA Rx#:[id number] Other: Date of Last Bowel Movement 02/07/18 02/07/18 Narrative: GENERAL: Well-nourished, well-developed male patient, in no acute distress. Awake and alert. is at the bedside. SKIN: Warm and clammy. No rash. HEENT: Normocephalic. Atraumatic. Pupils equal and round. Mucous membranes pink and moist. NECK: Supple. Trachea midline. CARDIOVASCULAR: Regular rate and rhythm. No murmur appreciated. RESPIRATORY: No accessory muscle use. Clear to auscultation. Breath sounds equal bilaterally. GASTROINTESTINAL: Abdomen soft, non-tender, nondistended. Normoactive bowel sounds x4. MUSCULOSKELETAL: No obvious deformities. Extremities without clubbing, cyanosis , or edema. No CVA tenderness bilaterally. NEUROLOGICAL: Awake and alert. No obvious cranial nerve deficits. Motor grossly within normal limits. Moving all extremities spontaneously. Normal speech. PSYCHIATRIC: Appropriate mood and affect; insight and judgment normal. Results - Labs CBC & Chem 7: 02/08/18 10:40 02/08/18 10:40 Laboratory Results - last 24 hr 02/06/18 02/07/18 02/07/18 04:55 10:48 10:48 WBC 12.2 H RBC 3.68 L Hgb 11.4 L D Hct 34.0 L MCV 92.4 D MCH 31.1 MCHC 33.6 RDW 13.3 Plt Count 205 MPV 7.8 Neut % (Auto) 73.2 H Lymph % (Auto) 16.2 [place] % (Auto) 9.8 H Eos % (Auto) 0.5 Baso % (Auto) 0.3 Neut # (Auto) 8.9 H Lymph # (Auto) 2.0 [place] # (Auto) 1.2 H Eos # (Auto) 0.1 Baso # (Auto) 0.0 WBC Differential . Differential Comment Auto diff final Sodium 140 Potassium 3.3 L Chloride 109 H Carbon Dioxide 22.3 Anion Gap 9 BUN 9 Creatinine 0.93 Estimated GFR Greater than 89 Random Glucose 108 H Calcium 8.8 Magnesium Total Bilirubin 0.5 AST 19 ALT 30 Alkaline Phosphatase 89 Total Protein 7.0 D Albumin 2.9 L D Urine Color Yellow Urine Clarity Hazy H Urine pH 5.0 Ur Specific [place] 1.010 Urine Protein Negative Urine Glucose (UA) Negative Urine Ketones Negative Urine Occult Blood Moderate H Urine Nitrate Positive H Urine Bilirubin Negative Urine Urobilinogen Less than 2 Ur Leukocyte Esterase Large H Urine RBC 33 H Urine WBC 176 H Urine Bacteria Many H Urine Mucus Few H Micro UA Comment Culture indicated Urine Culture Comments Culture indicated 02/08/18 02/08/18 02/08/18 10:40 10:40 10:40 WBC 8.5 RBC 3.74 L Hgb 11.7 L Hct 33.3 L MCV 89.2 MCH 31.4 MCHC 35.2 RDW 13.2 Plt Count 222 MPV 7.9 Neut % (Auto) 69.1 Lymph % (Auto) 20.4 [place] % (Auto) 8.2 H Eos % (Auto) 1.3 Baso % (Auto) 1.0 Neut # (Auto) 5.9 Lymph # (Auto) 1.7 [place] # (Auto) 0.7 Eos # (Auto) 0.1 Baso # (Auto) 0.1 WBC Differential . Differential Comment Auto diff final Sodium 140 Potassium 3.9 Chloride 107 Carbon Dioxide 24.4 Anion Gap 9 BUN 8 Creatinine 1.03 Estimated GFR 82 L Random Glucose 124 H Calcium 8.9 Magnesium 2.0 Total Bilirubin AST ALT Alkaline Phosphatase Total Protein Albumin Urine Color Urine Clarity Urine pH Ur Specific [place] Urine Protein Urine Glucose (UA) Urine Ketones Urine Occult Blood Urine Nitrate Urine Bilirubin Urine Urobilinogen Ur Leukocyte Esterase Urine RBC Urine WBC Urine Bacteria Urine Mucus Micro UA Comment Urine Culture Comments Microbiology 02/06/18 03:55 Blood - Peripheral Aerobic Blood Culture - Preliminary No growth in 2 days 02/06/18 03:55 Blood - Peripheral Anaerobic Blood Culture - Preliminary No growth in 2 days 02/06/18 04:00 Blood - Peripheral Aerobic Blood Culture - Preliminary No growth in 2 days 02/06/18 04:00 Blood - Peripheral Anaerobic Blood Culture - Preliminary No growth in 2 days 02/06/18 04:55 Clean Catch Urine Urine Culture - Final Escherichia coli Assessment and Plan - Plan 37-year-old male with past medical history of nephrolithiasis, presents with a 1 day history of subjective fevers, chills, and dehydration. Upon arrival to the hospital, he was found to have fever of 103 and urinalysis with UTI. Sepsis with UTI: Patient meets sepsis criteria with leukocytosis WBC 14.6 K, tachycardia HR 108, T-max 103, with suspected sourceUTI. -Urinalysis positive for nitrates, large leuks, many WBCs/bacteria -CXR and influenza negative -Monitor blood cultures. No growth x 2 days. -Continue on IV Rocephin. Urine Cx + E coli, sensitivities noted -Give IV fluid hydration -Tylenol as needed 02/08. Patient is afebrile. VSS. White count WNL. Patient noted to have a Mountain Dew and Dr. Pepper at the bedside. Recommended cessation of sodas. Increase water intake, keep well-hydrated. Urine needs to be clear. Nephrolithiasis: Patient with history of kidney stones, and passed 2 small stones after admission -RN to collect stone if anymore passes. No more passage of stones -Renal ultrasound reviewed, shows 8 x 4 x 8 mm right small renal stone; Mild prominence of the right central collecting system which could indicate mild hydronephrosis -IVF hydration DVT prophylaxis: Patient is ambulatory Discharge patient to home Condition on discharge: Improved Regular Diet as tolerated. Increase fluid intake. Decrease soda consumption. Ad Rocio activity Rx written: Bactrim Follow-up with primary care physician Code Status: Full Discussed Condition With: patient, , nursing staff, Dr. Espino
[2018-02-08] MEDS ORDERED: Sodium Chloride 0.9% 2 ML Flush PRN IV.FLUSH (11:30)
[2018-02-08] MEDS ORDERED: Sodium Chloride 0.9% 2 ML Flush BID IV.FLUSH SCH (21:00)
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
== END 2018-02-08 12:45 | disposition home or self-care (01) ==
LOC: NEPE 03:11 → NEDA 05:33 → INTOOBSV 05:33 → NEPHCDU 06:14
PROVIDERS: ADMIT Hospitalist; ATTEND Hospitalist